=== PATIENT | male | born 1995 | race Two or more races ===

== ENCOUNTER 2019-06-22 23:11 | Emergency (ER) | payer OTHER ==
[~2019-06-22] VITALS: Ht 182.9 cm; Wt 105.0 kg
[2019-06-22 23:16] VITALS: BP 138/76
[2019-06-23] MEDS ORDERED: LIDOCAINE HCL/PF 1% 10 MG/ML 5ML VIAL IJ ONE (02:15)
[2019-06-23] MEDS ORDERED: BACITRACIN ZINC OINT UDPKT TOP ONE (02:15)
== END 2019-06-23 04:02 | disposition home or self-care (01) ==
LOC: ER 23:11
DX: S01.81XA Laceration without foreign body of other part of head, initial encounter (principal); Y04.2XXA Assault by strike against or bumped into by another person, initial encounter; Y93.89 Activity, other specified; Y92.89 Other specified places as the place of occurrence of the external cause; R03.0 Elevated blood-pressure reading, without diagnosis of hypertension; F17.210 Nicotine dependence, cigarettes, uncomplicated; F12.90 Cannabis use, unspecified, uncomplicated
CPT/HCPCS: 12002; 70450; 70486; 99284; J3490; Z7610

== ENCOUNTER 2019-07-08 15:28 | Emergency (ER) | payer OTHER ==
[~2019-07-08] VITALS: Ht 180.3 cm; Wt 105.0 kg
[2019-07-08 15:47] VITALS: BP 138/60
== END 2019-07-08 18:56 | disposition home or self-care (01) ==
LOC: ER 15:28
DX: S01.01XD Laceration without foreign body of scalp, subsequent encounter (principal); X58.XXXD Exposure to other specified factors, subsequent encounter
CPT/HCPCS: 99281